=== PATIENT | male | born 1950 | race Caucasian/White ===

== ENCOUNTER 2016-09-18 21:52 | Emergency (ER) | payer MEDICARE, BC ==
[~2016-09-18] VITALS: Ht 165.1 cm; Wt 77.1 kg
[2016-09-18 22:22] LABS: APPEARANCE,URINE CLEAR (CLEAR); BILIRUBIN,URINE NEGATIVE (NEGATIVE); BLOOD, URINE NEGATIVE Ery/uL (NEGATIVE); COLOR,URINE YELLOW (YELLOW); KETONES,URINE NEGATIVE (NEGATIVE); LEUKOCYTE ESTERASE ,URINE NEGATIVE (NEGATIVE); NITRITE, URINE NEGATIVE (NEGATIVE); PROTEIN,URINE NEGATIVE (NEGATIVE); UGLUCOSE NEGATIVE (NEGATIVE); UROBILINOGEN,URINE 0.2 EU/dL (0.2)
--- NOTE | 2016-09-18 22:30 | NUR ---
US AT THE BEDSIDE.
--- NOTE | 2016-09-18 23:23 | NUR ---
PT LEFT FOR CT.
--- NOTE | 2016-09-18 23:25 | NUR ---
Fran fry in ED - 09/19/16 at 0000 by MIGUELCCLISBETH PT LEFT FOR CT VIA [facility].
[2016-09-18] MEDS ORDERED: ONDANSETRON 4 MG TAB.RAPDIS SL ONE (23:30)
[2016-09-18] MEDS ORDERED: MORPHINE SULFATE INJ 2 MG/ML DISP.SYRIN IV ONE (23:30)
[2016-09-18] MEDS ORDERED: MORPHINE SULFATE INJ 4 MG/ML DISP.SYRIN ONE (23:36)
[2016-09-18] MEDS ORDERED: MORPHINE SULFATE INJ 2 MG/ML DISP.SYRIN ONE (23:36)
[2016-09-18] MEDS ORDERED: ONDANSETRON 4 MG TAB.RAPDIS ONE (23:36)
--- NOTE | 2016-09-18 23:55 | NUR ---
PT RETURNED FROM CT.
--- NOTE | 2016-09-18 23:56 | NUR ---
PT REC'D MEDICATION ORDERED.
[2016-09-19 01:01] VITALS: BP 123/75
== END 2016-09-19 01:02 | disposition home or self-care (01) ==
LOC: ER 21:52 → EDBD 21:52 → ER 09-19 01:02
DX: K52.9 Noninfective gastroenteritis and colitis, unspecified (principal); F32.9 Major depressive disorder, single episode, unspecified; F41.9 Anxiety disorder, unspecified; I10 Essential (primary) hypertension; M51.36 Other intervertebral disc degeneration, lumbar region; N43.3 Hydrocele, unspecified
CPT/HCPCS: 72128-TC; 76870-TC; 81000-TC; A4606; J2270; Q0162; Z7610